=== PATIENT | female | born 1970 | race American Indian/Alaskan Native ===

== ENCOUNTER 2016-09-29 10:00 | Emergency (ER) | payer OTHER ==
--- NOTE | 2016-09-29 11:46 | Emergency Department Report ---
Entered by JASON DEL ANGEL, acting as scribe for LILIANE LICEA NP. Chief Complaint: Urogenital-Female Stated Complaint: CYCLE PROBLEMS - HPI History of Present Illness: Patient presents to the ED c/o vaginal bleeding for three weeks. Report night neck sweats and mood changes. Patient states that she started her period 3 weeks ago and it hasn't gone off. - ROS Review of Systems: All systems are negative unless staed in HPI above. - Exam Vital Signs: Vital Signs 09/29/16 10:51 Temperature 98 F Respiratory 16 Rate Blood Pressure 129/83 O2 Sat by Pulse 100 Oximetry Physical Exam: General: alert and oriented x 3 MSE screening note: Focused history and physical exam performed. Due to findings the following was ordered: VSS HX ANEMIA VAG BLEED SINCE END OF AUGUST HAS BEEN REG SINCE THEN TUBAL ON FE ALSO HAS HYPOGLYCEMIA HX- NO MEDS NO PCP OB 1 Y AGO WAS WNL PER PT. HOT FLASHES AT NIGHT, CONDE, DISCUSSED MENOPAUSE ED Medical Decision Making - Medical Decision Making Patient seen by provider in triage area. Labs will be drawn on patient. ED Disposition for MSE Condition: Stable This documentation as recorded by the scribe,JASON DEL ANGEL,accurately reflects the service I personally performed and the decisions made by me,LILIANE MENARD NP.
[2016-09-29 12:27] LABS: Anion Gap 15 mmol/L; Basophils % (Auto) 0.4 % (0.0-1.8); Blood Urea Nitrogen 20 mg/dL (7-17); Carbon Dioxide 25 mmol/L (22-30); Chloride 101.9 mmol/L (98-107); Eosinophils % (Auto) 0.7 % (0.0-4.3); Glucose 113 mg/dL (65-100); Hematocrit 37.6 % (30.3-42.9); Hemoglobin 11.9 gm/dl (10.1-14.3); Mean Corpuscular HGB Conc 32 % (30-34); Mean Corpuscular Hemoglobin 26 pg (28-32); Mean Corpuscular Volume 83 fl (79-97); Platelet Count 279 K/mm3 (140-440); Potassium 3.6 mmol/L (3.6-5.0); Red Blood Count 4.56 M/mm3 (3.65-5.03); Red Cell Distribution Width 16.3 % (13.2-15.2); Sodium 138 mmol/L (137-145)
[2016-09-29 14:57] LABS: Bacteria,Urine 1+ /HPF (Negative); Bilirubin,Urine NEG (Negative); Blood,Urine LG (Negative); Ketones,Urine TR mg/dL (Negative); Leukocyte Esterase,Urine NEG (Negative); Mucus,Urine 2+ /HPF; Nitrite,Urine NEG (Negative); Urobilinogen,Urine < 2.0 mg/dL (<2.0)
[2016-09-29 16:23] VITALS: BP 133/79
--- NOTE | 2016-09-29 16:31 | Emergency Department Report ---
ED Female HPI - General Chief complaint: Urogenital-Female Stated complaint: CYCLE PROBLEMS Time Seen by Provider: 09/29/16 16:13 Source: patient Mode of arrival: Ambulatory Limitations: No Limitations - History of Present Illness Initial comments: PT states that she has been on her cycle since the end of August. PT states that she normally has a cycle for three days. PT states that this cycle is finally starting to slow down. PT denies any pain. PT states she thinks she might be going thru the change because some times she will be sweating in the middle of the night. Complaint: vaginal bleeding Onset/Timin -: Gradual, week(s) Severity scale (0 -10): 0 Consistency: constant Improves with: none Worsens with: none Are you Now?: No Associated Symptoms: denies other symptoms, vaginal bleeding. denies: abdominal pain, nausea/vomiting, fever/chills, dysuria - Related Data Allergies Allergy/AdvReac Type Severity Reaction Status Date / Time No Known Allergies Allergy Unverified 09/29/16 10:56 ED Review of Systems ROS: Stated complaint: CYCLE PROBLEMS Other details as noted in HPI Comment: All other systems reviewed and negative Constitutional: denies: chills, fever Cardiovascular: denies: chest pain, palpitations, syncope Endocrine: denies: increased hunger, increased thirst, increased urine, unexplained weight gain, unexplained weight loss Gastrointestinal: denies: abdominal pain, nausea, vomiting Genitourinary: abnormal menses Musculoskeletal: denies: back pain ED Past Medical Hx - Past Medical History Previous Medical History?: No - Surgical History Past Surgical History?: Yes Additional Surgical History: - Family History Family history: other (sister and cousin with fibroids ) - Social History Smoking Status: Current Every Day Smoker Substance Use Type: Alcohol ED Physical Exam - General Limitations: No Limitations General appearance: alert, in no apparent distress - Head Head exam: Present: atraumatic, normocephalic, normal inspection - Eye Eye exam: Present: normal appearance, conjunctival injection - ENT ENT exam: Present: normal exam, normal orophraynx, normal external ear exam - Neck Neck exam: Present: normal inspection, tenderness, full ROM - Respiratory Respiratory exam: Present: normal lung sounds bilaterally. Absent: respiratory distress, wheezes - Cardiovascular Cardiovascular Exam: Present: regular rate, normal rhythm, normal heart sounds - GI/Abdominal GI/Abdominal exam: Present: soft, normal bowel sounds. Absent: tenderness - Extremities Exam Extremities exam: Present: normal inspection, full ROM - Back Exam Back exam: Present: normal inspection, full ROM. Absent: tenderness, CVA tenderness (R), CVA tenderness (L), muscle spasm, paraspinal tenderness, vertebral tenderness - Neurological Exam Neurological exam: Present: alert, oriented X3, normal gait - Psychiatric Psychiatric exam: Present: normal affect, normal mood - Skin Skin exam: Present: warm, dry, intact, normal color ED Course Vital Signs 09/29/16 09/29/16 10:51 16:22 Temperature 98 F Pulse Rate 62 Respiratory 16 18 Rate Blood Pressure 129/83 Blood Pressure 133/79 [Left] O2 Sat by Pulse 100 100 Oximetry - Reevaluation(s) Reevaluation #1: 09/29/16 16:26 PT aware of lab results. PT denies UTI symptoms. PT offered pelvic/us to further assess her vaginal bleeding. PT declined further work up at this time. pt aware she will need to follow up with [facility]. PT has no questions at this time. - Pulse Oximetry Interpretation Digit-Finger Initial Pulse Oximetry Readin Actions Taken: none ED Medical Decision Making - Lab Data Result diagrams: 09/29/16 11:58 09/29/16 11:58 Lab Results 09/29/16 09/29/16 09/29/16 Range/Units 11:58 11:58 14:00 WBC 6.0 (4.5-11.0) K/mm3 RBC 4.56 (3.65-5.03) M/mm3 Hgb 11.9 (10.1-14.3) gm/dl Hct 37.6 (30.3-42.9) % MCV 83 (79-97) fl MCH 26 L (28-32) pg MCHC 32 (30-34) % RDW 16.3 H (13.2-15.2) % Plt Count 279 (140-440) K/mm3 Lymph % (Auto) 32.9 (13.4-35.0) % [place] % (Auto) 8.9 H (0.0-7.3) % Eos % (Auto) 0.7 (0.0-4.3) % Baso % (Auto) 0.4 (0.0-1.8) % Lymph # 2.0 (1.2-5.4) K/mm3 [place] # 0.5 (0.0-0.8) K/mm3 Eos # 0.0 (0.0-0.4) K/mm3 Baso # 0.0 (0.0-0.1) K/mm3 Seg Neutrophils % 57.1 (40.0-70.0) % Seg Neutrophils # 3.4 (1.8-7.7) K/mm3 Sodium 138 (137-145) mmol/L Potassium 3.6 (3.6-5.0) mmol/L Chloride 101.9 (98-107) mmol/L Carbon Dioxide 25 (22-30) mmol/L Anion Gap 15 mmol/L BUN 20 H (7-17) mg/dL Creatinine 0.8 (0.7-1.2) mg/dL Estimated GFR > 60 ml/min BUN/Creatinine Ratio 25.00 % Glucose 113 H (65-100) mg/dL Calcium 9.0 (8.4-10.2) mg/dL Urine Color [place] (Yellow) Urine Turbidity Slightly-cloudy (Clear) Urine pH 5.0 (5.0-7.0) Ur Specific [place] 1.029 (1.003-1.030) Urine Protein 100 mg/dl (Negative) mg/dL Urine Glucose (UA) Neg (Negative) mg/dL Urine Ketones Tr (Negative) mg/dL Urine Blood Lg (Negative) Urine Nitrite Neg (Negative) Urine Bilirubin Neg (Negative) Urine Urobilinogen < 2.0 (<2.0) mg/dL Ur Leukocyte Esterase Neg (Negative) Urine WBC (Auto) 5.0 (0.0-6.0) /HPF Urine RBC (Auto) 5.0 (0.0-6.0) /HPF U Epithel Cells (Auto) 27.0 H (0-13.0) /HPF Urine Bacteria (Auto) 1+ (Negative) /HPF Urine Mucus 2+ /HPF Urine HCG, Qual Negative (Negative) - Differential Diagnosis DUB, uterine fibroid, menopause Critical Care Time: No Critical care attestation.: If time is entered above; I have spent that time in minutes in the direct care of this critically ill patient, excluding procedure time. ED Disposition Clinical Impression: Dysfunctional uterine bleeding Disposition: DISCHARGED TO HOME OR SELFCARE Is pt being admited?: No Does the pt Need Aspirin: No Condition: Stable Instructions: Dysfunctional Uterine Bleeding (ED) Referrals: PRIMARY CARE, [Primary Care Provider] - 3-5 Days BRIAN STAFFORD MD [Staff Physician] - 3-5 Days [facility] [Outside] - 3-5 Days [facility] [Outside] - 3-5 Days Forms: Accompanied Note, Work/School Release Form(ED) Time of Disposition: 16:30
== END 2016-09-29 17:15 | disposition home or self-care (01) ==
LOC: ED 10:00
DX: N93.8 Other specified abnormal uterine and vaginal bleeding (principal); F17.200 Nicotine dependence, unspecified, uncomplicated
CPT/HCPCS: 36415; 80048; 81001; 81025; 85025